=== PATIENT | female | born 1980 | race Caucasian/White ===

== ENCOUNTER 2018-06-11 00:46 | Emergency (ER) | payer OTHER ==
[~2018-06-11] VITALS: Ht 162.6 cm; Wt 56.7 kg
[2018-06-11 01:01] VITALS: Ht 162.6 cm; Wt 56.7 kg
[2018-06-11 02:22] VITALS: BP 117/76
== END 2018-06-11 02:23 | disposition home or self-care (01) ==
LOC: ED 00:46
DX: R55 Syncope and collapse (principal); R11.2 Nausea with vomiting, unspecified; R19.7 Diarrhea, unspecified; Z90.89 Acquired absence of other organs
CPT/HCPCS: J2550